=== PATIENT | female | born 1990 | race Caucasian/White ===

== ENCOUNTER 2019-10-27 21:32 | Outpatient (CLI) | payer SELFPAY ==
[~2019-10-27] VITALS: Ht 149.9 cm; Wt 71.8 kg
--- NOTE | 2019-10-27 21:40 | NUR ---
SUSANA CABRERA presented to unit via ambulation from ED, accompanied by family , with c/o CONTRACTIONS. SUSANA CABRERA weighed, gowned, voided, and to bed. EFHM and TOCO applied, VS taken. SUSANA CABRERA oriented to bed controls, call light, TV, heat, and A/C controls. Above tasks and assessments per ZOIE BORDEN.
[2019-10-27] MEDS ORDERED: PREN-53 PO (21:44)
[2019-10-27 22:22] LABS: BILIRUBIN,URINE NEGATIVE (NEGATIVE); CLARITY,URINE CLEAR; COLOR,URINE YELLOW; GLUCOSE, URINE (UA) NEGATIVE (NEGATIVE); KETONES,URINE NEGATIVE (NEGATIVE); LEUKOCYTE ESTERASE ,URINE 2+ (NEGATIVE); NITRITE,URINE NEGATIVE (NEGATIVE); PROTEIN,URINE NEGATIVE (NEGATIVE)
[2019-10-27 22:30] VITALS: BP 116/72
[2019-10-27 22:30] LABS: BACTERIA,URINE MODERATE /HPF; RBC,URINE 0-2 /HPF; WBC,URINE 50-100 /HPF
--- NOTE | 2019-10-27 23:23 | NUR ---
Dr. Webb notified of patient arrival, complaints, UA results, SVE, and contraction pattern. Orders received to discharge patient home on labor precautions and call in a prescription for keflex 500mg, twice a day for 5 days to preferred pharmacy.
[2019-10-27 23:42] VITALS: BP 116/72
[2019-10-27] MEDS ORDERED: CEPH-507 PO (23:51)
--- NOTE | 2019-10-28 00:10 | NUR ---
Written discharge instructions reviewed with patient. Discharge instructions signed and copy given. Prescription called into preferred pharmacy and patient instructed to go pick it up in the morning. Patient discharged home on labor precautions, accompanied by friend. Patient was able to ambulate off unit without difficulty, condition stable. No signs or symptoms of distress.
--- NOTE | 2019-10-30 08:21 | Physician Query-Final Dx ---
Clinic Account Progress/Dx Physician Query: Please give diagnosis Please include # weeks gestation Date of Service Oct 27, 2019 at 21:32 CLAY TOM Oct 30, 2019 08:21 POS
== END 2019-10-28 00:10 | disposition home or self-care (01) ==
LOC: WSo 21:32 → LDRP 21:33 → WSo 10-28 00:10
PROVIDERS: ATTEND Family Medicine
DX: O62.9 Abnormality of forces of labor, unspecified (principal); Z3A.00 Weeks of gestation of pregnancy not specified
CPT/HCPCS: 81000; 87088

== ENCOUNTER 2019-10-31 12:30 | Outpatient (CLI) | payer SELFPAY ==
[~2019-10-31] VITALS: Ht 149.9 cm; Wt 71.6 kg
[~2019-10-31 12:30] MED LIST: CEPH-507 PO; PREN-53 PO
--- NOTE | 2019-10-31 12:30 | NUR ---
SUSANA CABRERA presented to unit via ambulatory, accompanied by and 2 kids, with c/o CONTRACTIONS. SUSANA CABRERA weighed, gowned, voided, and to bed. EFHM and TOCO applied, VS taken. SUSANA CABRERA oriented to bed controls, call light, TV, heat, and A/C controls.
--- NOTE | 2019-10-31 12:50 | NUR ---
this rn called dr kirkland with pt report and situation. dr kirkland states that she had pt in clinic this am. sve in clinic was 2cm. pt was on OB as outpatient last week, laverne willard called her 3cm. Nehemiah today called her 2.[address] kirkland states that she monitored pt in clinic today for approx 2 hrs. pt did not make change. she told the pt and go home, relax, eat, bath. pt came to hospital, CO uc. pt only on monitor so far for about 8 minutes, 2 uc noted, [address] kirkland gives instructions to monitor pt for at least another 30-45 min, recheck cervix. if no cervical change, dc to home.
[2019-10-31 13:00] VITALS: BP 111/66
--- NOTE | 2019-10-31 14:43 | NUR ---
THIS RN CALLS DR SRIVASTAVA WITH UPDATED PT REPORT. SVE NO CERVICAL CHANGE. UC PATTERN IRREGULAR 5-12 MIN, FHT REVIEWED WITH . GIVES ORDER TO DC TO HOME. THIS RN GIVES DC INSTRUCTIONS TO PT USING TIMBER RIDER, VERBALIZE UNDERSTANDING.
--- NOTE | 2019-11-01 12:17 | Physician Query-Final Dx ---
Clinic Account Progress/Dx Physician Query: Please give diagnosis Please include # weeks gestation Date of Service Oct 31, 2019 at 12:30 CLAY TOM Nov 01, 2019 12:17
== END 2019-10-31 14:53 | disposition home or self-care (01) ==
LOC: LDRP 12:30 → WSo 12:30
PROVIDERS: ATTEND Family Medicine
DX: O62.9 Abnormality of forces of labor, unspecified (principal); Z3A.00 Weeks of gestation of pregnancy not specified
CPT/HCPCS: 99214

== ENCOUNTER 2019-11-02 16:33 | Outpatient (CLI) | payer SELFPAY ==
[~2019-11-02] VITALS: Ht 149.9 cm; Wt 72.0 kg
--- NOTE | 2019-11-02 16:43 | NUR ---
SUSANA CABRERA presented to unit from ED, accompanied by family, with c/o COONTRACTIONS. SUSANA CABRERA weighed, gowned, voided, and to bed. EFHM and TOCO applied, VS taken. SUSANA CABRERA oriented to bed controls, call light, TV, heat, and A/C controls.
[2019-11-02 17:15] VITALS: BP 108/68
--- NOTE | 2019-11-02 17:20 | NUR ---
Dr. Lemus notified of patient's arrival, complaints, and exam. New orders received.
--- NOTE | 2019-11-02 18:11 | NUR ---
Discharge instructions and medications reviewed with patient and both written and verbally. Patient verbalizes understanding and questions answered.
--- NOTE | 2019-11-02 18:15 | NUR ---
Patient discharged at this time and ambulated from the unit with no signs or symptoms of distress noted.
--- NOTE | 2019-11-06 10:33 | Physician Query-Final Dx ---
Clinic Account Progress/Dx Physician Query: Please give diagnosis Please include # weeks gestation Date of Service Nov 02, 2019 at 16:33 CLAY TOM Nov 06, 2019 10:33
== END 2019-11-02 18:15 | disposition home or self-care (01) ==
LOC: LDRP 16:33 → WSo 16:33
PROVIDERS: ATTEND Family Medicine
DX: O26.00 Excessive weight gain in pregnancy, unspecified trimester (principal); Z3A.00 Weeks of gestation of pregnancy not specified
CPT/HCPCS: 99214

== ENCOUNTER 2019-11-07 16:32 | Inpatient (IN) | payer OTHER ==
[2019-11-07] VITALS (15 sets, daily range): BP systolic 109–124; BP diastolic 59–85
[~2019-11-07] VITALS: Ht 149.9 cm; Wt 72.3 kg
--- NOTE | 2019-11-07 16:38 | NUR ---
SUSANA CABRERA presented to unit from ED, accompanied by family, with c/o INDUCTION. SUSANA CABRERA weighed, gowned, voided, and to bed. EFHM and TOCO applied, VS taken. SUSANA CABRERA oriented to bed controls, call light, TV, heat, and A/C controls.
--- NOTE | 2019-11-07 17:00 | NUR ---
Dr. Barcenas notified of patient's arrival. New orders received.
[2019-11-07] MEDS ORDERED: OXYTOCIN/NORMAL SALINE 500 ML IV SCH (17:02)
[2019-11-07] MEDS ORDERED: D5 LR IV SOLUTION 1,000 ML IV ONE (17:02)
[2019-11-07] MEDS ORDERED: OXYTOCIN/NORMAL SALINE 500 ML IV ONE (17:02)
[2019-11-07] MEDS ORDERED: D5 LR IV SOLUTION 1,000 ML IV SCH (17:02)
[2019-11-07 17:10] LABS: BILIRUBIN,URINE NEGATIVE (NEGATIVE); CLARITY,URINE CLEAR; COLOR,URINE DARK YELLOW; GLUCOSE, URINE (UA) NEGATIVE (NEGATIVE); KETONES,URINE NEGATIVE (NEGATIVE); LEUKOCYTE ESTERASE ,URINE 2+ (NEGATIVE); NITRITE,URINE NEGATIVE (NEGATIVE); PROTEIN,URINE NEGATIVE (NEGATIVE)
[2019-11-07 17:11] LABS: BASOPHILS % (AUTO) 0 % (0-10); EOSINOPHILS # (AUTO) 0.1 10^3/uL (0.0-0.3); EOSINOPHILS % (AUTO) 1 % (0-10); HEMATOCRIT 27 % (35-52); HEMOGLOBIN 8.5 G/DL (11.5-16.0); LYMPHOCYTES # (AUTO) 1.7 X 10^3 (1.0-4.0); LYMPHOCYTES % (AUTO) 27 % (12-44); MEAN CORPUSCULAR HEMOGLOBIN 24 PG (25-34); MEAN CORPUSCULAR HGB CONC 31 G/DL (32-36); MEAN CORPUSCULAR VOLUME 77 FL (80-99); MEAN PLATELET VOLUME 10.6 FL (7.4-10.4); MONOCYTES # (AUTO) 0.4 X 10^3 (0.0-1.0); MONOCYTES % (AUTO) 6 % (0-12); NEUTROPHILS # (AUTO) 4.2 X 10^3 (1.8-7.8); NEUTROPHILS % (AUTO) 67 % (42-75); PLATELET COUNT 342 10^3/uL (130-400); RED CELL DISTRIBUTION WIDTH 14.7 % (10.0-14.5); WHITE BLOOD COUNT 6.4 10^3/uL (4.3-11.0)
[2019-11-07] MEDS ORDERED: MINERAL OIL CONCENTRATE 99.9% 15 ML UDC TOP PRN (17:15)
[2019-11-07 17:21] LABS: BACTERIA,URINE FEW /HPF; WBC,URINE 25-50 /HPF
--- NOTE | 2019-11-07 19:00 | NUR ---
Report to Eugenia Avilez RN.
--- NOTE | 2019-11-07 19:00 | NUR ---
As this RN assumes care, pitocin running at 8mlhr, and D5LR liter bag running at 125ml/hr.
[2019-11-07] MEDS ORDERED: CATHETER FLUSH 10 ML SYR IV SCH (22:00)
--- NOTE | 2019-11-07 22:10 | History & Physical-OB ---
OB - Chief Complaint & HPI Date/Time Date of Admission: Date of Admission: Nov 07, 2019 at 16:32 Date seen by a Provider: Nov 08, 2019 Time Seen by a Provider: 05:10 Chief Complaint/History OB-Reason for Admission/Chief: Induction of Labor Hx : 4 Hx Para: 3 Expected Date of Delivery: Nov 08, 2019 Gestational Age in Weeks: 39 Gestational Age in Days: 6 Indication for induction: medical complication Other reason for admission: Pt came to clinic for routine follow up and noted severe itching worst on hands for last 2 weeks, noted to have excoriations but no rash. Given that she is 39 weeks and 6 days, concern for intrahepatic cholestasis existed and would take significant amount of time for confirmatory labs, and she has favorable cervical exam, decided to proceed with induction. History of Labs B+, antibody neg, RI, HIV/HepB/RPR NR. Glucola nml. GBS neg. Allergies and Home Medications Allergies Coded Allergies: No Known Allergies (Verified Allergy, Unknown, 10/27/19) Home Medications Nnd686/Iron Fumarate/FA/Dss 1 Each Tablet, 1 EACH PO DAILY, (Reported) Patient Home Medication List Home Medication List Reviewed: Yes OB - History Hx of Present Ultrasounds: Normal mid trimester US Obstetrical Complications: Other (suspected intrahepatic cholestasis) Obstetrical History Hx : 4 Hx Para: 3 Hx # Term Pregnancies: 3 Number of Living Children: 3 Delivery History Adverse Rxn to Tranfusion: No Patient Past Medical History PMHX: Denies Social History/Family History HIV/AIDS: No Recent Infectious Disease Expo: No Sexually Transmitted Disease: No Alcohol Use: Denies Use Recreational Drug Use: No Smoking Cessation: Never smoker 2nd Hand Smoke Exposure: No Immunizations Date of Influenza Vaccine: Aug 02, 2019 Rubella: immune RPR/VDRL: Negative GBS Status: Negative HBsAG: Negative OB - Admission Exam Physical Exam Vitals: Vital Signs 11/07/19 11/07/19 20:00 21:15 Temp 36.6 Pulse 59 Resp 18 B/P (MAP) 111/73 (86) Pulse Ox 99 O2 Delivery Room Air Cervical Dilatation: 4cm (on arrival per nursing) Effacement: 0% Station: -3 Membranes: Intact Maguire Scoring Tool (Modified) Dilation (cm): 3-4cm (2) Effacement (%): 0-30% (0) Descent/Station: -3 (0) Cervix Consistency: Soft (2) Add 1 point for: Each previous vaginal delivery (1) Maguire Score: 7 Labs Laboratory Tests Test 11/07/19 16:40 11/07/19 16:48 Range/Units Urine Color DARK YELLOW Urine Clarity CLEAR Urine pH 7.0 5-9 Urine Specific [place] 1.015 L 1.016-1.022 Urine Protein NEGATIVE NEGATIVE Urine Glucose (UA) NEGATIVE NEGATIVE Urine Ketones NEGATIVE NEGATIVE Urine Nitrite NEGATIVE NEGATIVE Urine Bilirubin NEGATIVE NEGATIVE Urine Urobilinogen 0.2 < = 1.0 MG/DL Urine Leukocyte Esterase 2+ H NEGATIVE Urine RBC (Auto) NEGATIVE NEGATIVE Urine RBC NONE /HPF Urine WBC 25-50 H /HPF Urine Squamous Epithelial Cells 5-10 /HPF Urine Crystals NONE /LPF Urine Bacteria FEW H /HPF Urine Casts NONE /LPF Urine Mucus NEGATIVE /LPF Urine Culture Indicated YES White Blood Count 6.4 4.3-11.0 10^3/uL Red Blood Count 3.55 L 4.35-5.85 10^6/uL Hemoglobin 8.5 L 11.5-16.0 G/DL Hematocrit 27 L 35-52 % Mean Corpuscular Volume 77 L 80-99 FL Mean Corpuscular Hemoglobin 24 L 25-34 PG Mean Corpuscular Hemoglobin Concent 31 L 32-36 G/DL Red Cell Distribution Width 14.7 H 10.0-14.5 % Platelet Count 342 130-400 10^3/uL Mean Platelet Volume 10.6 H 7.4-10.4 FL Neutrophils (%) (Auto) 67 42-75 % Lymphocytes (%) (Auto) 27 12-44 % Monocytes (%) (Auto) 6 0-12 % Eosinophils (%) (Auto) 1 0-10 % Basophils (%) (Auto) 0 0-10 % Neutrophils # (Auto) 4.2 1.8-7.8 X 10^3 Lymphocytes # (Auto) 1.7 1.0-4.0 X 10^3 Monocytes # (Auto) 0.4 0.0-1.0 X 10^3 Eosinophils # (Auto) 0.1 0.0-0.3 10^3/uL Basophils # (Auto) 0.0 0.0-0.1 10^3/uL OB - Assessment/Plan/Diagnosis Assessment Assessment: induction of labor Admission Dx 39 weeks gestation Suspected intrahepatic cholestasis Admission Status: Inpatient Order (span 2 midnights) Reason for Inpatient Admission: Labor, delivery and course Plan Plan: Induction Induction Method: per Pitocin Protocol Other Plan Check CMP and bile acids RON BENOIT MD Nov 07, 2019 22:10
[2019-11-07 22:30] LABS: ALANINE AMINOTRANSFERASE 20 U/L (0-55); ALBUMIN 3.1 GM/DL (3.2-4.5); ALKALINE PHOSPHATASE 341 U/L (40-136); BILIRUBIN,TOTAL 0.2 MG/DL (0.1-1.0); BUN/CREATININE RATIO 7; CALCIUM 8.6 MG/DL (8.5-10.1); CARBON DIOXIDE 18 MMOL/L (21-32); CHLORIDE 107 MMOL/L (98-107); CREATININE SERUM 0.61 MG/DL (0.60-1.30); GFR ESTIMATED > 60; GLUCOSE 88 MG/DL (70-105); POTASSIUM 3.7 MMOL/L (3.6-5.0); SODIUM 138 MMOL/L (135-145); TOTAL PROTEIN 7.4 GM/DL (6.4-8.2)
[2019-11-08] VITALS (29 sets, daily range): BP systolic 102–146; BP diastolic 59–73
--- NOTE | 2019-11-08 06:14 | OB Labor & Delivery Record ---
Vag Delivery Note Vag Delivery Note Date of Delivery: 11/08/19 Preoperative Diagnosis: Amos Felix is a 29 /Para 4 / 3, Gestational Age (wks) 40/0 Postoperative Diagnosis: Same Surgeon: RON BENOIT Anesthesia: None Delivery Type: Vaginal Findings: Viable male , apgars 8/9, weight pending Lacerations: none Intact placenta with 3 vessel cord. [place] cord, hand delivered with shoulder, no body cord or shoulder dystocia Estimated Blood Loss: 250 ml Complications: None Condition: Stable Description of Procedure: The patient is a 29 year old female who presented for induction of labor due to suspected intrahepatic cholestasis. She was admitted and informed consent was obtained. Her labor course was unremarkable. She progressed to complete dilatation and began to push. She was then set up for delivery. The 's head was delivered atraumatically in the JAYA position. The shoulders and remainder of the 's body were then delivered without difficulty. Upon delivery, the was vigorous and placed on maternal abdomen. After a delay the cord was doubly clamped and cut and the infant was handed off to the pediatric staff. An intact placenta with 3-vessel cord delivered via Tere and there was found to be minimal bleeding.~ Vigorous fundal massage was performed and the fundus was found to be firm. IV oxytocin was given. Examination of the vagina and perineum revealed no lacerations. Following the delivery, sponge, instrument and needle counts were correct. Mom and baby were both in stable condition in the labor suite. Vitals - Labs Vital Signs - I&O Vital Signs Date Time Temp Pulse Resp B/P (MAP) Pulse Ox O2 Delivery O2 Flow Rate FiO2 11/08/19 05:30 36.6 58 18 123/60 (81) 99 Room Air 11/08/19 05:15 62 18 123/68 (86) 99 Room Air 11/08/19 05:00 54 18 117/66 (83) 99 Room Air 11/08/19 04:45 53 18 110/60 (77) 100 Room Air 11/08/19 04:30 53 18 117/68 (84) 100 Room Air 11/08/19 04:15 64 18 120/66 (84) 100 Room Air 11/08/19 04:00 57 18 139/67 (91) 99 Room Air 11/08/19 03:45 58 18 130/72 (91) 100 Room Air 11/08/19 03:30 58 18 99 Room Air 11/08/19 03:15 36.6 51 18 116/64 (81) 99 Room Air 11/08/19 03:00 56 18 132/62 (85) 99 Room Air 11/08/19 02:45 53 18 127/61 (83) 99 Room Air 11/08/19 02:30 53 18 125/67 (86) 99 Room Air 11/08/19 02:15 67 18 120/64 (82) 99 Room Air 11/08/19 02:00 55 18 117/64 (81) 99 Room Air 11/08/19 01:45 64 18 104/67 (79) 99 Room Air 11/08/19 01:30 63 18 123/65 (84) 99 Room Air 11/08/19 01:15 54 18 117/65 (82) 99 Room Air 11/08/19 01:00 56 18 99 Room Air 11/08/19 00:45 57 18 99 Room Air 11/08/19 00:30 60 18 99 Room Air 11/08/19 00:15 18 Room Air 11/08/19 00:00 71 18 100 Room Air 11/07/19 23:45 60 18 114/64 (81) 99 Room Air 11/07/19 23:30 55 18 119/66 (83) 99 Room Air 11/07/19 23:15 54 18 121/59 (79) 99 Room Air 11/07/19 23:00 65 18 124/85 (98) 100 Room Air 11/07/19 22:45 67 18 116/66 (83) 99 Room Air 11/07/19 22:30 57 18 122/67 (85) 99 Room Air 11/07/19 22:15 55 18 110/60 (77) 98 Room Air 11/07/19 22:00 56 18 123/64 (83) 99 Room Air 11/07/19 21:45 69 18 110/65 (80) 98 Room Air 11/07/19 21:30 61 18 114/68 (83) 98 Room Air 11/07/19 21:15 59 18 99 Room Air 11/07/19 21:00 58 18 99 Room Air 11/07/19 20:45 58 18 99 Room Air 11/07/19 20:30 62 18 100 Room Air 11/07/19 20:15 58 18 99 Room Air 11/07/19 20:00 36.6 63 18 111/73 (86) 99 Room Air 11/07/19 19:45 60 18 116/75 (89) 99 Room Air 11/07/19 19:30 59 18 117/63 (81) 99 Room Air 11/07/19 19:15 63 18 116/70 (85) Room Air 11/07/19 18:30 36.4 11/07/19 16:43 36.2 85 18 109/65 (80) Room Air 11/07/19 16:43 36.2 85 18 98 Room Air Labs Laboratory Tests 11/07/19 16:40: Urine Color DARK YELLOW, Urine Clarity CLEAR, Urine pH 7.0, Urine Specific [place] 1.015L, Urine Protein NEGATIVE, Urine Glucose (UA) NEGATIVE, Urine Ketones NEGATIVE, Urine Nitrite NEGATIVE, Urine Bilirubin NEGATIVE, Urine Urobilinogen 0.2, Urine Leukocyte Esterase 2+H, Urine RBC (Auto) NEGATIVE, Urine RBC NONE, Urine WBC 25-50H, Urine Squamous Epithelial Cells 5-10, Urine Crystals NONE, Urine Bacteria FEWH, Urine Casts NONE, Urine Mucus NEGATIVE, Urine Culture Indicated YES 11/07/19 16:48: White Blood Count 6.4, Red Blood Count 3.55L, Hemoglobin 8.5L, Hematocrit 27L, Mean Corpuscular Volume 77L, Mean Corpuscular Hemoglobin 24L, Mean Corpuscular Hemoglobin Concent 31L, Red Cell Distribution Width 14.7H, Platelet Count 342, Mean Platelet Volume 10.6H, Neutrophils (%) (Auto) 67, Lymphocytes (%) (Auto) 27, Monocytes (%) (Auto) 6, Eosinophils (%) (Auto) 1, Basophils (%) (Auto) 0, Neutrophils # (Auto) 4.2, Lymphocytes # (Auto) 1.7, Monocytes # (Auto) 0.4, Eos inophils # (Auto) 0.1, Basophils # (Auto) 0.0, Sodium Level 138, Potassium Level 3.7, Chloride Level 107, Carbon Dioxide Level 18L, Anion Gap 13, Blood Urea Nitrogen 4L, Creatinine 0.61, Estimat Glomerular Filtration Rate > 60, BUN/Creatinine Ratio 7, Glucose Level 88, Calcium Level 8.6, Corrected Calcium 9.3, Total Bilirubin 0.2, Aspartate Amino Transf (AST/SGOT) 19, Alanine Aminotransferase (ALT/SGPT) 20, Alkaline Phosphatase 341H, Total Protein 7.4, Albumin 3.1L RON BENOIT MD Nov 08, 2019 06:14
[2019-11-08] MEDS ORDERED: BENZOCAINE/MENTHOL (DERMOPLAST) 56 ML CAN TP PRN (06:45)
[2019-11-08] MEDS ORDERED: TETANUS,DIPTH,PERTUSS P/F (BOOSTRIX) 0.5 ML VIAL IM ONE (06:45)
[2019-11-08] MEDS ORDERED: OXYTOCIN/NORMAL SALINE 500 ML IV SCH (06:45)
[2019-11-08] MEDS ORDERED: MEASLES,MUMPS,RUBELLA 1 EA INJ SQ ONE (06:45)
[2019-11-08] MEDS ORDERED: WITCH HAZEL(TUCKS) 40 EA JAR TOP PRN (06:45)
--- NOTE | 2019-11-08 07:35 | NUR ---
Rn to bedside. pt resting in bed. assessment. ff1/u with lt rubra noted, no clots expressed. pt assisted to bathroom, void, pericare, pad changed. gown changed. plan of care reviewed with pt and at bedside.
--- NOTE | 2019-11-08 07:45 | NUR ---
Transferred to room 310. Ambulates self accompanied by staff, and infant to room 310. Oriented to room, call light and surroundings. info packet at bedside. breakfast tray to bedside table. at bedside.
[2019-11-08] MEDS ORDERED: IBUPROFEN 600 MG (MOTRIN) TAB PO ONE (07:56)
[2019-11-08] MEDS: IBUPROFEN 600 MG (MOTRIN) TAB PO SCH ×3 (07:59→22:00)
[2019-11-08] MEDS: DOCUSATE SODIUM 100 MG (COLACE) CAP PO SCH ×2 (08:00→20:45)
--- NOTE | 2019-11-08 13:00 | NUR ---
ff1/u with lt-mod rubra noted on pads, no clots.
[2019-11-08] MEDS ORDERED: CATHETER FLUSH 10 ML SYR IV SCH (14:00)
[2019-11-09 00:33] VITALS: BP 120/62
[2019-11-09 04:47] VITALS: BP 106/58
[2019-11-09] MEDS: IBUPROFEN 600 MG (MOTRIN) TAB PO SCH ×2 (04:49→10:16)
[2019-11-09 06:46] LABS: BASOPHILS % (AUTO) 0 % (0-10); EOSINOPHILS # (AUTO) 0.1 10^3/uL (0.0-0.3); EOSINOPHILS % (AUTO) 1 % (0-10); HEMATOCRIT 23 % (35-52); LYMPHOCYTES % (AUTO) 24 % (12-44); MEAN CORPUSCULAR HEMOGLOBIN 24 PG (25-34); MEAN CORPUSCULAR HGB CONC 30 G/DL (32-36); MEAN CORPUSCULAR VOLUME 79 FL (80-99); MEAN PLATELET VOLUME 10.6 FL (7.4-10.4); MONOCYTES # (AUTO) 0.5 X 10^3 (0.0-1.0); MONOCYTES % (AUTO) 6 % (0-12); NEUTROPHILS # (AUTO) 5.8 X 10^3 (1.8-7.8); NEUTROPHILS % (AUTO) 69 % (42-75); PLATELET COUNT 259 10^3/uL (130-400); RED CELL DISTRIBUTION WIDTH 14.6 % (10.0-14.5); WHITE BLOOD COUNT 8.5 10^3/uL (4.3-11.0)
[2019-11-09] MEDS ORDERED: DOCU100C37 PO (07:44)
[2019-11-09] MEDS ORDERED: FERR325T18 PO (07:44)
[2019-11-09] MEDS ORDERED: IBUP-844 PO (07:44)
[2019-11-09 09:00] VITALS: BP 97/52
--- NOTE | 2019-11-09 09:00 | NUR ---
A.M. ASSESSMENT COMPLETED. VSS. DR. BENOIT HERE TO TALK WITH PT. LANGUAGE LINE UTILIZED.
--- NOTE | 2019-11-09 09:20 | NUR ---
UP TO GET IN THE SHOWER. SUPPLIES GIVEN. TO RN'S CARE FOR TESTING.
[2019-11-09] MEDS: DOCUSATE SODIUM 100 MG (COLACE) CAP PO SCH (09:40)
--- NOTE | 2019-11-09 10:22 | Discharge Summary ---
Discharge Summary Hospital Course Hospital Course Date of Admission: Nov 07, 2019 at 16:32 Admission Diagnosis : Family Physician/Provider: Marley Webb MD Date of Discharge: 11/09/19 Discharge Diagnosis: s/p spontaneous vaginal delivery at 40 weeks Suspected intrahepatic cholestasis Asymptomatic anemia Hospital Course: Pt had uncomplicated induction, delivery and course. Had hemoglobin 7.0 after delivery (was anemic prior), but was asymptomatic. Suspected intrahepatic cholestasis led to induction, CMP was normal but serum bile acids still pending at time of d/c. Labs and Pending Lab Test: Laboratory Tests 11/09/19 06:25: White Blood Count 8.5, Red Blood Count 2.91L, Hemoglobin 7.0L, Hematocrit 23L, Mean Corpuscular Volume 79L, Mean Corpuscular Hemoglobin 24L, Mean Corpuscular Hemoglobin Concent 30L, Red Cell Distribution Width 14.6H, Platelet Count 259, Mean Platelet Volume 10.6H, Neutrophils (%) (Auto) 69, Lymphocytes (%) (Auto) 24, Monocytes (%) (Auto) 6, Eosinophils (%) (Auto) 1, Basophils (%) (Auto) 0, Neutrophils # (Auto) 5.8, Lymphocytes # (Auto) 2.0, Monocytes # (Auto) 0.5, Eosinophils # (Auto) 0.1, Basophils # (Auto) 0.0 Home Meds Active Ferrous Sulfate 325 Mg Tablet 325 Mg PO DAILY Docusate Sodium 100 Mg Capsule 100 Mg PO BID Ibu (Ibuprofen) 600 Mg Tablet 600 Mg PO Q6HR PRN Reported 19 Tablet (Vui500/Iron Fumarate/FA/Dss) 1 Each Tablet 1 Each PO DAILY Assessment/Pt DC Instructions Follow up with Dr. Webb in 6 weeks for visit. Nothing in the vagina until visit. Discharge Diet: No Restrictions Activity as Tolerated: Yes (avoid strenous activity x 2 weeks) Discharge Physical Examination Allergies: Coded Allergies: No Known Allergies (Verified Allergy, Unknown, 10/27/19) General Appearance: No Apparent Distress, WD/WN Respiratory: Lungs Clear, Normal Breath Sounds Cardiovascular: Regular Rate, Rhythm, No Murmur Gastrointestinal: Normal Bowel Sounds, Other (fundus firm below umbilicus, ap propriately tender) Extremity: No Pedal Edema Neurologic/Psychiatric: Alert, Normal Mood/Affect Copy Copies To 1: MARLEY WEBB MD Discharge Summary Date of Admission Nov 07, 2019 at 16:32 Date of Discharge Discharge Date: Nov 09, 2019 Clinical Quality Measures DVT/VTE Risk/Contraindication: Risk Factor Score Per Nursin RFS Level Per Nursing on Admit: 1=Low/No VTE PPX RON BENOIT MD Nov 09, 2019 10:21
--- NOTE | 2019-11-09 10:30 | NUR ---
CERTIFICATE BEING PREPARED.
--- NOTE | 2019-11-09 12:30 | NUR ---
CONTINUES TO CARE FOR IN ROOM. BREAST AND BOTTLE FEEDING.
--- NOTE | 2019-11-09 13:30 | NUR ---
DISCHARGE INSTRUCTIONS REVIEWED WITH COPY TO PT. LANGUAGE LINE UTILIZED. SPOUSE ASSISTING WITH QUESTIONS. STATES UNDERSTANDING OF ALL INSTRUCTIONS AND NEED TO F/U SCHEDULED AND NEEDED.
[2019-11-09 13:55] VITALS: BP 97/52
--- NOTE | 2019-11-09 13:55 | NUR ---
DISMISSED AMB FROM [facility] WITH INFANT IN STABLE CONDITION TO [facility]ILY [facility] BY SPOUSE AND DAVID MCFARLANE PCT.
== END 2019-11-09 13:55 | disposition home or self-care (01) | DRG 805 ==
LOC: LDRP 16:32
PROVIDERS: ADMIT Family Medicine; ATTEND Family Medicine
PROC: 3E033VJ Introduction of Other Hormone into Peripheral Vein, Percutaneous Approach (ICD-10-PCS; 2019-11-07)
PROC: 10E0XZZ Delivery of Products of Conception, External Approach (ICD-10-PCS; principal; 2019-11-08)
DX: O26.62 Liver and biliary tract disorders in childbirth (principal); K83.1 Obstruction of bile duct; O99.03 Anemia complicating the puerperium; D64.9 Anemia, unspecified; Z3A.39 39 weeks gestation of pregnancy; Z37.0 Single live birth
CPT/HCPCS: 36415; 80053; 81000; 83789; 85025; 86850; 86900; 86901; 87088